=== PATIENT | male | born 1960 | race Caucasian/White ===

== ENCOUNTER 2017-04-03 15:10 | Inpatient (IN) | payer BC ==
[~2017-04-03] VITALS: Ht 177.8 cm; Wt 180.2 kg
--- NOTE | 2017-04-04 07:54 | HP ---
ADMIT: 04/03/2017 RM/LOC: 412 [facility] MR#: [id number] [address] [address] [place] UPFJ [place] [address] [place] [address] History and Physical SEX: M AGE: 56 : 1960 DATE OF SERVICE: CHIEF COMPLAINT: COPD exacerbation. 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 He states that over the past 10 days he has had progressive worsening of dyspnea and cough. He has a known history of COPD. He normally sees a doctor in [place]. Because he got a little bit of rain today, he was unable [place] be [place] in [place]. He decided to go into the local clinic in [place] to be seen for his cough. His O2 saturation apparently was in the range of 67% on room air when he arrived in [place]. They sent him to [place] to the emergency room to be evaluated there. Upon evaluation through the emergency room in [place], they felt that he needed to be admitted for a COPD exacerbation. He was given doses of IV Zithromax, IV Rocephin, and IV steroids and was admitted to the hospital in [place] earlier today. After remaining in the hospital for a few hours, the staff apparently became concerned due to his oxygen requirements and dyspnea. They felt that it would be best to have him transferred here to [place] for more aggressive treatment and care. He was subsequently transferred from [facility] to [facility] today. I am admitting him as a city call admit. PAST MEDICAL HISTORY: Illnesses include previous history of known COPD, obstructive sleep apnea, hypertension, atrial fibrillation, hypercholesterolemia, hepatitis C, and type 2 diabetes. MEDICATIONS: Current med list includes: 1. Hydrocodone 10/325 mg 1 tab t.i.d. as needed. 2. Lisinopril 20 mg daily. 3. Atorvastatin 40 mg daily. 4. Symbicort 2 puffs b.i.d. 5. Bystolic 10 mg daily. 6. Lasix 80 mg daily. 7. Xarelto 20 mg daily. 8. Toujeo 76 units daily for diabetes. 9. Travatan 1 drop each eye daily. 10.Aspirin 81 mg daily. PAST SURGICAL HISTORY: The patient has had previous cardioversion for his atrial fibrillation in 2009 and also had a heart catheterization in 2009. ALLERGIES: PENICILLIN, AUGMENTIN, AND CIPRO. 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 He is and lives with his . He has 3 daughters. He normally sees a doctor in [place]. Previously, was seeing Dr. Wen until his recent from cancer. He is a long-time smoker, who started smoking around age 10. Currently smoking 1/2 pack per day, but has previously been a heavier smoker. He currently has rare alcohol use, but admits that he used to drink ADMIT: 04/03/2017 RM/LOC: 412 [facility] MR#: [id number] [address] [address] [place] [address] [place] [address] History and Physical SEX: M AGE: 56 : 1960 heavily when he was younger. REVIEW OF SYSTEMS: HEENT: The patient has history of glaucoma, but denies any recent visual changes. No headaches or ear pain. No sore throat or difficulty swallowing. CARDIOVASCULAR: History of atrial fibrillation and hypertension. Currently, no chest pain or palpitations. PULMONARY: History of COPD. Has had progressive shortness of breath and cough over the past 10 days. Mild sputum production. GASTROINTESTINAL: No nausea, vomiting, diarrhea, or constipation. No abdominal pain. GENITOURINARY: No history of kidney stones, bladder problems, or current dysuria, hematuria, or frequency. ENDOCRINE: History of type 2 diabetes. Uses medications to treat this. No history of thyroid problems. PSYCHIATRIC: No history of depression, anxiety, or anger issues. NEUROLOGIC: No history of seizures or strokes. MUSCULOSKELETAL: Has some issues with chronic pain and takes Lortab for this. PHYSICAL EXAMINATION: VITAL SIGNS: Most recent vitals include a temperature of 99.1, pulse 78 and regular, respiratory rate 20, blood pressure 132/78, O2 saturation is 91%, currently on 6 L of O2 per nasal cannula. GENERAL: The patient is awake, alert, and active. He states he is feeling much better. Not in acute distress at this time. HEENT: Ears clear bilaterally. Oropharynx moist without erythema or tonsillar enlargement. NECK: Supple without lymphadenopathy or JVD. No thyroid enlargement or tenderness. LUNGS: With diffuse wheezes bilaterally. HEART: Regular rate and rhythm without murmur, rub, or gallop. ABDOMEN: Morbidly obese, but soft, nontender, and nondistended. EXTREMITIES: With 1+ edema in the lower extremities. SKIN: No jaundice, cyanosis, or rash. LABORATORY AND X-RAY: Not available. He apparently had a full workup including a reportedly normal chest x-ray in the emergency room in [place]. Reportedly, his white blood cell count was 10.0 and hemoglobin 16.9. I do not have any of these records available for review at this time. ASSESSMENT: 1. Chronic obstructive pulmonary disease exacerbation. 2. Hypoxia. ADMIT: 04/03/2017 RM/LOC: 412 [facility] MR#: [id number] [address] [address] [place] [address] [address] [place] [address] History and Physical SEX: M AGE: 56 : 1960 3. Chronic atrial fibrillation (on Xarelto). 4. Type 2 diabetes mellitus. 5. Hypertension. 6. Obstructive sleep apnea (uses CPAP at night). PLAN: The patient has been admitted for a COPD exacerbation. We will keep him on IV Zithromax, IV Rocephin, DuoNeb breathing treatments, IV steroids, and oxygen. Currently, he is feeling much better. We will continue his regular home medications. We will follow blood sugars closely as we give him IV steroids as I suspect his sugars will go up. We will check a hemoglobin A1c to assess his diabetes status. Pulmonology consult has been obtained as well. Ken Sheppard MD/ beth JOB #: [id number] CC: Ken Sheppard, Attending Physician Ken Sheppard, Family Physician
[2017-04-11] MEDS ORDERED: XARELTO20 MG PO (14:51)
[2017-04-11] MEDS ORDERED: LASIX DPS40 MG PO (14:51)
[2017-04-11] MEDS ORDERED: HYDROCODON-ACE1 EAC6 PO (14:51)
[2017-04-11] MEDS ORDERED: SYMBICORT160 MCG/6 IH (14:52)
[2017-04-11] MEDS ORDERED: MEVACOR40 MG PO (14:52)
[2017-04-11] MEDS ORDERED: JANUVIA100 MG PO (14:52)
[2017-04-11] MEDS ORDERED: TOUJEO SOL300 UNIT/1 SQ (14:52)
[2017-04-11] MEDS ORDERED: BYSTOLIC20 MG PO (14:53)
[2017-04-11] MEDS ORDERED: TRAVATAN Z2.5 ML OU (14:53)
[2017-04-11] MEDS ORDERED: ASPIRIN EC81 MG PO (14:53)
[2017-04-11] MEDS ORDERED: OMNICEF DPS300 MG PO (14:54)
[2017-04-11] MEDS ORDERED: DELTASONE20 MG PO (14:54)
[2017-04-11] MEDS ORDERED: HABITROL TP (14:55)
--- NOTE | 2017-04-12 14:22 | ER ---
ADMIT: 04/03/2017 RM/LOC: 412 [facility] MR#: [id number] [address] [address] [place] [address] [place] [address] Emergency Room Report SEX: M AGE: 56 : 1960 DATE: 04/03/2017 ADDENDUM: CHIEF COMPLAINT: Cough. HISTORY OF PRESENT ILLNESS: This is a 56-year-old male, who developed a cough about 10 days ago. He said he has been trying to plant corn so really has not been taking care of himself as much as he should today. Today was a rainy day so he decided to go to the doctor and get it checked out. He first went to [place] in the clinic and then they transferred him to [place] for an admit. There he received Solu-Medrol, Zithromax, and Rocephin. He was on BiPAP there initially. They were concerned that he was decompensating, so they sent him to [place]. Upon arrival, we were able to titrate him down to 4 L of normal saline, keep his sats at 91 to 92%. Per [place], his chest x-ray is negative. CBC is normal. Lactic acid was normal. CLINICAL IMPRESSION: Chronic obstructive pulmonary disease with acute exacerbation and acute bronchitis. I did speak with Dr. Sheppard regarding the patient. He will admit to the floor. ANKUR Ahuja / Ezno Riddle MD / beth JOB #: [id number] CC: Ken Sheppard MD, Attending Physician Ken Sheppard MD, Family Physician
--- NOTE | 2017-04-24 12:02 | CO ---
ADMIT: 04/03/2017 RM/LOC: 302 [facility] MR#: [id number] [address] [address] [place] [address] [place] [address] Consultation SEX: M AGE: 56 : 1960 DATE OF CONSULTATION: 04/04/2017 ATTENDING PHYSICIAN: Ken Sheppard CONSULTING PHYSICIAN: Lashawn Elizondo MD REASON FOR CONSULTATION: Pulmonary critical care, acute hypoxemic respiratory failure with hypercapnic respiratory failure. 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 For 10 days, he has had a cough, wheezing, shortness of breath, and he has a known history of COPD. He normally goes to [place]. He went to the local clinic and at that point, his oxygen saturations were extremely low at 67%. He was then sent to [place] and they sent him here for further evaluation concerning that he might need more aggressive care such as noninvasive ventilation or others. He was started on antibiotics consisting of Rocephin, Zithromax, and IV steroids and transferred here for further care. He complains of severe cough, dyspnea, sputum production, slight low grade fevers, some chills. In the hospital here, I did an arterial blood gas, which showed a pH of 7.26 with pCO2 of 65. He was subsequently started on noninvasive ventilation transferred to the intensive care unit. PAST MEDICAL HISTORY: COPD, obstructive sleep apnea, hypertension, atrial fib, hypercholesterolemia, hepatitis C, and type 2 diabetes. MEDICATIONS: From home were: 1. Aspirin. 2. Travatan. 3. Toujeo. 4. Xarelto. 5. Lasix. 6. Bystolic. 7. Symbicort. 8. Atorvastatin. 9. Lisinopril. 10.Hydrocodone. PAST SURGICAL HISTORY: Cardioversion, atrial fibrillation, heart catheterization in 2010. ALLERGIES: CIPRO, AUGMENTIN, AND PENICILLIN. SOCIAL HISTORY: Former, , 3 daughters, longtime smoker, age 10 to current, 1/2 pack cigarettes per day currently, but more than that in the past. Rare alcohol use. REVIEW OF SYSTEMS: Twelve point noncontributory except in the HPI and reviewed. ADMIT: 04/03/2017 RM/LOC: 302 [facility] MR#: [id number] [address] [address] [place] [address] [place] [address] Consultation SEX: M AGE: 56 : 1960 PHYSICAL EXAMINATION: VITAL SIGNS: Temp 99, pulse was 78 and regular, respirations 24, blood pressure 130/70, on 6 L nasal cannula sats are 90-91%. HEENT: Within normal limits. NECK: No JVD or bruits. HEART: Regular rate. No murmur or gallop. LUNGS: Bilateral rhonchi. He has wheezes bilaterally on exam as well. ABDOMEN: Soft. Bowel sounds positive. Nontender. Nondistended. No hepatosplenomegaly. EXTREMITIES: No cyanosis, clubbing, or edema. GENITORECTAL: Deferred. LABORATORY TESTING: Stat ABG showed pH 7.29, pCO2 of 57, PO2 of 56, D-dimer was normal. White count 10,100, hemoglobin 15.8, and platelets 149. Comprehensive metabolic panel was not revealing. Glucose was elevated. Lactic acid and procalcitonin normal. Chest x-ray shows basilar pulmonary infiltrates. IMPRESSION: Acute hypoxemic and hypercapnic respiratory failure. The patient with a known history of COPD and long-standing smoking history. He has a history of underlying cardiac disease but it has been fairly stable. He has not been sick until the last 10 days. He is on medications, and continues to smoke at home. PLAN: Will be intravenous steroids, antibiotics to cover for acute community- acquired pneumonia with respiratory insufficiency. Transferred to the intensive care unit for noninvasive ventilation. Intubation if needed. Given the normal D-dimer, but relative lack of findings on chest x-ray, consider CT of the chest to evaluate for thromboembolism. Thank you for having me see him. Lashawn Elizondo MD/ beth JOB #: [id number] CC: Ken Sheppard, Attending Physician Ken Sheppard, Family Physician
--- NOTE | 2017-05-20 09:06 | DS ---
ADMIT: 04/03/2017 RM/LOC: 419 [facility] MR#: [id number] [address] [address] [place] [address] [place] [address] General Discharge Summary SEX: M AGE: 56 : 1960 ADMISSION DATE: 04/03/2017 DISCHARGE DATE: 04/10/2017 PRIMARY DIAGNOSES: 1. Chronic obstructive pulmonary disease exacerbation. 2. Hypoxia. 3. Tobacco abuse. 4. Positive rhino virus sputum culture. 5. Chronic atrial fibrillation. 6. Diabetes mellitus type 2 (hemoglobin A1c of 7.5 during this hospitalization). 7. Obstructive sleep apnea - previous CPAP use at home with change to BiPAP here during this hospitalization. 8. Hypertension. 9. Renal insufficiency. 10.Left 4th finger fracture. CONSULTATIONS DURING THIS HOSPITALIZATION: Pulmonology with Dr. Gunnar Munroe. 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 He normally sees a doctor in [place], [place]. He has a known history of COPD. The patient has a 1-2 week history of progressively worsening dyspnea and cough. The patient has been putting off evaluation of his symptoms because he was too busy farming. Because he got some rain and was unable to farm, he decided to go to [facility] for evaluation of his cough. Upon evaluation in [place], his O2 saturation was around the range of 60-70% on room air and they sent him to [place] to the emergency room to be evaluated. He was evaluated in [facility] and subsequently admitted. He had been given doses of IV Zithromax, IV Rocephin, and IV steroids and was admitted to the hospital in [place]. After several hours, the hospital staff became concerned due to his high oxygen requirements and continued dyspnea. They therefore transferred him to [place] for more aggressive treatment and pulmonology care. He was transferred from [place] to [facility] on 04/03/2017, and I was asked to admit this patient as a City Call admit. LABORATORY AND X-RAY: Labs from evaluation here at [place] included a chest x-ray on 04/04 that showed interstitial thickening of the lung bases. Chest x-rays were repeated daily and were last done on 04/07/2017 and showed some basilar interstitial opacities. No definitive pneumonia noted. Initial CBC from 04/04/2017, showed a hemoglobin of 15.8, platelet count 149. Prior to discharge on 04/10, his white blood cell count was elevated at 18.0 (likely from his steroids) hemoglobin was 16.9, and platelet count 174. D-dimer done at time of admission on 04/03 was 0.40. Blood chemistries drawn at time of admission on 04/04 showed a sodium of 139, potassium 4.5, BUN 28, creatinine 1.3, glucose 223, alkaline phosphatase 97, AST 9, ALT 19, magnesium 2.3. ProBNP level 824. Procalcitonin level less than 0.05. Prior to discharge from the hospital on 04/10, lactic acid was 1.5. Magnesium was 2.4. ProBNP ADMIT: 04/03/2017 RM/LOC: 419 [facility] MR#: [id number] [address] [address] [place] [address] [place] [address] General Discharge Summary SEX: M AGE: 56 : 1960 level 477. Procalcitonin level is less than 0.05. Sodium 138, potassium 4.9, BUN 41, creatinine 1.1, glucose 203, alkaline phosphatase 80, AST 15, ALT 41. Hemoglobin A1c was 7.5 during this hospitalization. HOSPITAL COURSE: The patient was admitted with primary diagnosis of COPD exacerbation on 04/03/2017. The patient was admitted to the PCU for close monitoring. Oxygen was started. The patient was initiated on IV Zithromax and IV Rocephin. DuoNeb breathing treatments were ordered for every 4 hours. A CPAP machine at night with home settings was ordered as well. IV Solu- Medrol 80 mg t.i.d. was ordered. Because of his diabetes, close sugar monitoring was done as well. Hemoglobin A1c was 7.5 at time of admission, indicating decent control of his diabetes. Pulmonology consult was ordered and smoking cessation counseling was ordered as well. The patient was feeling much better upon arrival to the hospital after receiving DuoNeb treatments, IV steroids, and IV antibiotics in [place] prior to his transfer here. He was actually fairly stable by the time he arrived to [facility] [place]. BiPAP was ordered after the patient was subsequently transferred to the ICU as this was his first time with BiPAP. The patient's dyspnea improved. No fevers or chills noted. Sliding scale NovoLog protocol was ordered for his diabetes as the IV steroids were increasing his glucose levels. The patient continued to be followed closely throughout this hospitalization with close monitoring by the gis manager. A respiratory viral panel was ordered on 04/04 and did come back positive for rhino virus. The patient continued to slowly improve throughout the hospitalization. It was noted the patient required continued oxygen use. The patient stated that he did have oxygen at home, but did not wear it on a regular basis. He also used CPAP at night but did not wear it regularly. During this hospitalization, he was encouraged to use his BiPAP regularly here in the hospital and he would be required to use at home as well. Also told him that he would likely require some regular/chronic home oxygen use as well. Respiratory therapy did document his OT requirements during this hospitalization. The patient slowly improved. IV steroids were gradually weaned. By 04/10/2017, patient was stable and doing well. Breathing was back to baseline and actually "better than before." The patient was therefore set up to be discharged to home on 04/10/2017. DISCHARGE INSTRUCTIONS: The patient was discharged to home on 04/10/2017. MEDICATIONS AT TIME OF DISCHARGE: Included: 1. Aspirin 81 mg daily. 2. Bystolic 20 mg daily. 3. Prednisone 30 mg daily. 4. Januvia 100 mg daily. 5. Lasix 80 mg daily. 6. Omnicef 300 mg b.i.d. 7. Lovastatin 40 mg daily. 8. Xarelto 20 mg daily. ADMIT: 04/03/2017 RM/LOC: 419 [facility] MR#: [id number] 26[address] [facility] [address] [place] [address] [place] [address] [place], [place] [address] General Discharge Summary SEX: M AGE: 56 : 1960 9. Symbicort 160/4.5, 2 puffs b.i.d. 10.Travatan eye drops daily. 11.Toujeo 77 units daily. 12.Habitrol nicotine patches daily. 13.Hydrocodone 10/325 mg q.4 hours as needed. 14.His Omnicef was to be continued for 5 more days. 15.Tapering course of prednisone was ordered by Pulmonology. He was to remain on a diabetic diet at home. Home oxygen was set up per recommendations from respiratory therapy and BiPAP was to be used at night. He is to follow up with his regular physician in [place] in 5-7 days. The patient is also followed in [place], [place] and was asked to make sure he touches base with his regular primary care providers. Ken Sheppard MD/ beth JOB #: [id number] CC: Ken Sheppard MD, Attending Physician Ken Sheppard MD, Family Physician
== END 2017-04-10 15:45 | disposition home or self-care (01) | DRG 189 ==
LOC: ER 15:10 → 3ICU 15:44 → 4PCU 15:44 → 3ICU 04-04 04:15 → 4PCU 04-05 16:59
PROVIDERS: ADMIT Family Medicine
DX: J96.02 Acute respiratory failure with hypercapnia (principal); J44.0 Chronic obstructive pulmonary disease with (acute) lower respiratory infection; E11.22 Type 2 diabetes mellitus with diabetic chronic kidney disease; J44.1 Chronic obstructive pulmonary disease with (acute) exacerbation; E66.2 Morbid (severe) obesity with alveolar hypoventilation; Z68.43 Body mass index [BMI] 50.0-59.9, adult; J96.01 Acute respiratory failure with hypoxia; S62.665A Nondisplaced fracture of distal phalanx of left ring finger, initial encounter for closed fracture; X58.XXXA Exposure to other specified factors, initial encounter; I48.2 Chronic atrial fibrillation; J20.9 Acute bronchitis, unspecified; B97.89 Other viral agents as the cause of diseases classified elsewhere; I12.9 Hypertensive chronic kidney disease with stage 1 through stage 4 chronic kidney disease, or unspecified chronic kidney disease; N18.9 Chronic kidney disease, unspecified; G89.29 Other chronic pain; H40.9 Unspecified glaucoma; F17.210 Nicotine dependence, cigarettes, uncomplicated; E78.00 Pure hypercholesterolemia, unspecified; Z86.19 Personal history of other infectious and parasitic diseases; Z79.01 Long term (current) use of anticoagulants; Z79.82 Long term (current) use of aspirin; Z79.4 Long term (current) use of insulin